=== PATIENT | male | born 1980 | race American Indian/Alaskan Native ===

== ENCOUNTER 2022-05-18 20:52 | Emergency (ER) | payer OTHER ==
[2022-05-18 21:26] VITALS: BP 156/98
--- NOTE | 2022-05-18 22:26 | XRay Report ---
FACIAL BONES 3 VIEWS INDICATION / CLINICAL INFORMATION: foreign object in nose COMPARISON: None available. FINDINGS: BONES and JOINT(S): No acute fracture or subluxation. No significant arthritis. SOFT TISSUES: A curvilinear thin radiopaque foreign body is noted extending from the level of the evelin is to just below the bottom lip. No other significant abnormality. ADDITIONAL FINDINGS: None. IMPRESSION: 1. Radiopaque foreign body as above without other significant abnormalities. Signer Name: Goyo Morin MD Signed: 05/18/2022 10:22 PM Workstation Name: [id number]
[2022-05-19] MEDS ORDERED: TETANUS,DIPH,PERTUSS(ACELL) VACCINE 0.5 ML SYRINGE IM ONE (02:29)
--- NOTE | 2022-05-19 03:43 | Emergency Department Report ---
ED General Adult HPI - General Chief complaint: Wound/Laceration Stated complaint: FOREIGN OBJECT IN NOSE Time Seen by Provider: 05/19/22 02:28 Source: patient Mode of arrival: Ambulatory Limitations: No Limitations - History of Present Illness Initial comments: 6-year-old male is emerged from complaining of foreign body stuck into the left/right nostril and in the form of metal wire which became lodged while he was doing some lawn work and affected fluid to the nose. He attempted to remove it by pulling it but was unsuccessful in doing to the pain and the pressure needed to remove. Reports no headache, no bleeding, no fever, chills, sweats. No cough and no congestion. Quality: dull Consistency: constant Improves with: none Worsens with: movement Associated Symptoms: denies: chest pain, cough, diaphoresis, loss of appetite, malaise, nausea/vomiting, shortness of breath, syncope, weakness - Related Data Previous Rx's Medication Instructions Recorded Last Taken Type Aspirin 325 mg PO QDAY #30 tablet 07/02/14 Unknown Rx lisinopriL [Zestril TAB] 10 mg PO QDAY #30 tablet 07/02/14 Unknown Rx cephALEXin [Keflex] 500 mg PO Q6HR #40 capsule 05/19/22 Unknown Rx Allergies Allergy/AdvReac Type Severity Reaction Status Date / Time No Known Allergies Allergy Verified 06/29/14 20:04 ED Review of Systems ROS: Stated complaint: FOREIGN OBJECT IN NOSE Other details as noted in HPI Comment: All other systems reviewed and negative ED Past Medical Hx - Past Medical History Previous Medical History?: Yes Hx Hypertension: Yes Hx Heart Attack/AMI: No Hx Congestive Heart Failure: No Hx Diabetes: No Hx Asthma: No Hx COPD: No - Surgical History Past Surgical History?: No - Social History Smoking Status: Never Smoker Substance Use Type: None - Medications Home Medications: Home Medications Medication Instructions Recorded Confirmed Last Taken Type Aspirin 325 mg PO QDAY #30 tablet 07/02/14 Unknown Rx lisinopriL [Zestril TAB] 10 mg PO QDAY #30 tablet 07/02/14 Unknown Rx cephALEXin [Keflex] 500 mg PO Q6HR #40 capsule 05/19/22 Unknown Rx ED Physical Exam - General Limitations: No Limitations General appearance: alert, in no apparent distress - Head Head exam: Present: atraumatic, normocephalic, other - Expanded Head Exam Expanded 1 - Wire lost into the lateral nasal wall not involving the nasal turbinate no bleeding - Eye Eye exam: Present: normal appearance Pupils: Present: normal accommodation - ENT ENT exam: Present: normal exam, normal orophraynx, mucous membranes moist, TM's normal bilaterally - Neck Neck exam: Present: normal inspection, full ROM - Respiratory Respiratory exam: Present: normal lung sounds bilaterally. Absent: respiratory distress, wheezes, rales - Cardiovascular Cardiovascular Exam: Present: regular rate, normal rhythm. Absent: systolic murmur, diastolic murmur, rubs, gallop - GI/Abdominal GI/Abdominal exam: Present: soft, normal bowel sounds - Rectal Rectal exam: Present: deferred - Extremities Exam Extremities exam: Present: normal inspection - Back Exam Back exam: Present: normal inspection - Neurological Exam Neurological exam: Present: alert, oriented X3 - Psychiatric Psychiatric exam: Present: normal affect, normal mood - Skin Skin exam: Present: warm, dry, intact, normal color. Absent: rash ED Course Vital Signs 05/18/22 21:23 Temperature 98.2 F Pulse Rate 90 Respiratory 16 Rate Blood Pressure 156/98 O2 Sat by Pulse 96 Oximetry - Foreign Body Removal Nose Location: nostril (R) Suspected Foreign Body: other (A piece of wire into the right no) Patient Preparation: topical anesthetic Patient Tolerated Procedure: well Complications: none Critical care attestation.: If time is entered above; I have spent that time in minutes in the direct care of this critically ill patient, excluding procedure time. ED Disposition Clinical Impression: Foreign body in nose Disposition: 01 HOME / SELF CARE / HOMELESS Is pt being admited?: No Does the pt Need Aspirin: No Condition: Stable Instructions: Puncture Wound Prescriptions: cephALEXin [Keflex] 500 mg PO Q6HR #40 capsule Referrals: [facility] [Provider Group] - 3-5 Days
== END 2022-05-19 04:51 | disposition home or self-care (01) ==
LOC: ED 20:52
DX: T17.1XXA Foreign body in nostril, initial encounter (principal); I10 Essential (primary) hypertension; X58.XXXA Exposure to other specified factors, initial encounter; Y93.89 Activity, other specified; Y92.89 Other specified places as the place of occurrence of the external cause; Y99.8 Other external cause status
CPT/HCPCS: 70140; 90471; 90715; 99283